=== PATIENT | female | born 2005 | race Caucasian/White ===

== ENCOUNTER → 2025-02-14 08:23 | Outpatient (REF) | payer BC, SELFPAY | LOC: HWRAD 08:23 | PROVIDERS: ATTENDING PHYSICIAN Obstetrics & Gynecology; FAMILY PHYSICIAN Physician Assistant Medical | DX: R10.2 Pelvic and perineal pain (principal) | CPT/HCPCS: 76830; 76856 ==

== ENCOUNTER 2025-05-13 17:13 | Emergency (ER) | payer BC, SELFPAY ==
[2025-05-13 17:15] VITALS: BP 135/88
[2025-05-13 17:27] LABS: Hematocrit 40.4 % (37.0-47.0); Hemoglobin 13.8 g/dL (12.0-16.0); Mean Corp Hgb Conc. 34.2 g/dL (33.0-37.0); Mean Corpuscular Volume 86.0 fL (81.0-99.0); Nucleated Red Blood Cells % 0 %; Platelet Count 287 10^3/uL (130-400); Red Cell Dist. Width 13.7 % (11.5-14.5)
[2025-05-13 18:01] LABS: ALT (SGPT) 22 U/L (0-35); AST (SGOT) 28 U/L (14-36); Albumin 5.0 g/dl (3.5-5.0); Alkaline Phosphatase 38 U/L (38-126); Blood Urea Nitrogen 15 mg/dl (7-17); Calcium 9.7 mg/dl (8.4-10.2); Carbon Dioxide 24 mmol/L (22-30); Chloride 106 mmol/L (98-107); Glucose 119 mg/dl (70-99); Potassium 4.5 mmol/L (3.5-5.1); Sodium 138 mmol/L (135-145); Total Protein 8.4 g/dl (6.3-8.2); eGFR > 60.00
[2025-05-13 18:02] LABS: HCG, Serum Qualitative Screen Negative
[2025-05-13 19:58] VITALS: BMI 21.0
--- NOTE | 2025-05-13 20:54 | ED.GENMED ---
History of Present Illness
General
Chief Complaint: Female Program Support Specialist/Gu symptoms
Source: patient
Exam Limitations: none
Time Seen by Provider: 05/13/25 19:36
Nursing documentation reviewed up to this point in time: agreed with
History of Present Illness
History of Present Illness:
19 yo female here with irregular bleeding outside of her menstrual period and abdominal pain. Her last normal menstrual period was on the 04-02 of this month, and she began experiencing unusual bleeding starting on the . The bleeding over the
past three days has been characterized by blood ranging from black to brown to red. She saw her TILE FITTER doctor 02/14 and had US
The patient reports having light bleeding and is currently using mini pads. She describes her periods as generally not heavy.
A gynecological evaluation was attempted earlier today at a clinic where she she states the pelvic pain was so bad when they examined her that she fainted, leading to a recommendation for an emergency room visit.
She states a history of bilateral ovarian cysts, specifically a larger one on the left side.
The patient confirms her bowel movements and urination are normal, with no changes in stool color.
Past History
Past History
ED Past Medical History: None
ED Past Surgical History: Other (breast reduction)
Social History
Tobacco: Smoker
Alcohol: Occasional
Personal: Single
Employment: Employed
Review of Systems
Review of Systems
Allergies reviewed?: Yes
All Other Systems: ROS reviewed and negative except as documented in HPI and ROS
Constitutional: Reports weight loss (She reports significant weight fluctuations, noting a previous weight of 150 pounds, which notably decreased about a year ago. She is currently struggling to gain weight. PCP recommended GI doctor but has not
been seen. States 1 year ago she was 150 pounds and now she is 104. She denies being ano); Denies fever or fatigue
Respiratory: Denies trouble breathing
Cardiac: Denies chest pain
ABD/GI: Reports abdominal pain
: Reports bleeding; Denies dysuria or frequency
Musculoskeletal: Reports no symptoms
Skin: Reports no symptoms
Neurological: Reports no symptoms
Phy Exam
Physical Exam
Physical Exam:
GENERAL: No acute distress. A&Ox3.
CONSTITUTIONAL: Afebrile.
EYES: clear, conjunctivae normal
ENMT: moist mucus membranes, Pharynx nl
RESPIRATORY: Regular respirations, nonlabored, lungs clear.
CARDIOVASCULAR: Regular rate and rhythm, no murmurs, no rubs.
GI: Soft, nontender, normal BS
: Very small amount of red blood on mini pad
MUSCULOSKELETAL: Moves with ease. Well perfused.
SKIN: Warm, dry, pink
PSYCH: Normal mood and affect. Well kept, interactive and appropriate
NEUROLOGIC: Awake, alert and oriented. No focal neurological deficits
Course
Orders/Labs/Results
Orders:
Orders
05/13/25 17:17
Test Result ONCE
05/13/25 17:21
Complete Blood Count/With Diff Urgent
Comprehensive Metabolic Panel Urgent
HCG, Serum Qualitative Screen Urgent
05/13/25 19:37
US Pelvis W Transvag Combined Urgent
Comment:
Reason For Exam: abnormal vag bleeding
Abnormal Lab Results
05/13/25
17:21
MPV 10.5 H fL
(7.4-10.4)
Monocytes % 9.7 H %
(1.7-9.3)
Glucose 119 H mg/dl
(70-99)
Total Protein 8.4 H g/dl
(6.3-8.2)
05/13/25 17:21
05/13/25 17:21
Vital Signs
Initial and Last Documented VS:
Initial Vital Signs
Temp Pulse Resp BP Pulse Ox
98.5 F 75 16 135/88 97
05/13/25 17:15 05/13/25 17:15 05/13/25 17:15 05/13/25 17:15 05/13/25 17:15
Last Documented Vital Signs
Temp Pulse Resp BP Pulse Ox
98.5 F 72 18 132/78 100
05/13/25 17:15 05/13/25 22:50 05/13/25 22:50 05/13/25 22:50 05/13/25 22:50
MDM/Problems Addressed
Differential Diagnosis Includes:
1. Ovarian cysts
2. Dysfunctional uterine bleeding
3. Endometriosis
4. Pelvic inflammatory disease
5. Ectopic
6. Uterine fibroids
7. Polycystic ovary syndrome (PCOS)
8. Hormonal imbalance
9. Gastrointestinal disorders
10. Weight-related concerns (malnutrition or eating disorders)
MDM/Problems Addressed:
19 yo female here with irregular bleeding outside of her menstrual period and abdominal pain. Her last normal menstrual period was on the 04-02 of this month, and she began experiencing unusual bleeding starting on the . The bleeding over the
past three days has been characterized by blood ranging from black to brown to red. She saw her TILE FITTER doctor 02/14 and had US
The patient reports having light bleeding and is currently using mini pads. She describes her periods as generally not heavy.
A gynecological evaluation was attempted earlier today at a clinic where she she states the pelvic pain was so bad when they examined her that she fainted, leading to a recommendation for an emergency room visit.
She states a history of bilateral ovarian cysts, specifically a larger one on the left side.
The patient confirms her bowel movements and urination are normal, with no changes in stool color.
CBC normal
CMP normal
hCG negative
Plan:
1. Order ultrasound to further evaluate the patients condition.
2. Referral to a gastrointestinal specialist to address significant weight fluctuations and related concerns.
3. Review of bloodwork results.
4. Follow-up care to be coordinated through primary care and specialized consultations as needed.
10:40 PM:
Ultrasound pelvis radiology report reviewed: 1. Unremarkable pelvic ultrasound as described.
Pt is followed by [facility]
*Pulse Oximetry
SaO2: 97
Oxygen Mode of Delivery: Room air
Patient hypoxic: not evaluated
*Critical Care Note
Total Time (30-74mins, 75-104mins- exclusive of procedures): Not Applicable
ED Attending Note
-
Portions of this chart may have been created with voice recognition software.� Occasional wrong word or��sound alike� substitutions may have occurred due to the inherent limitations of voice recognition software.
Discharge Plan
Departure
Patient Disposition: Home (Routine Discharge)
Date of Disposition: 05/13/25
Time of Disposition: 22:41
Patient with high blood pressure during this ER visit?: No
Condition: Good
Discharge Problem:
Abnormal vaginal bleeding
Prescriptions:
No Action
celecoxib 200 MG capsule
200 mg PO .ONCE
acetaminophen [Tylenol Extra Strength] 500 MG tablet
1,000 mg PO .ONCE
aprepitant [Emend] 40 MG capsule
40 mg PO .ONCE
Referrals:
Tristan Arredondo MD [Family Provider, Family Practice]
Activity Restrictions/Additional Instructions:
As we discussed, your workup here today shows nothing worrisome. Your ultrasound is normal. Your blood work is normal.
Follow-up with your TILE FITTER doctor if you have any further concerns
Interventions
Interventions:
*Risk Screen - Suicide Last Done: 05/13/25 17:17
*General Assessment Last Done: 05/13/25 22:53
*Neglect/Abuse Screening Last Done: 05/13/25 17:17
*ED- Fall Risk Assessment Last Done: 05/13/25 22:53
*ED COVID-19 Vaccine History Last Done: 05/13/25 22:53
*Nursing Disposition Last Done: 05/13/25 22:53
ED-Female Genitourinary Assessment Last Done: 05/13/25 19:58
Discharge Date and Time
Discharge Date/Time: 05/13/25 22:55
Print Language: KOREAN
[2025-05-13 22:50] VITALS: BP 132/78
== END 2025-05-13 22:55 | disposition home or self-care (01) ==
LOC: EMR 17:13
PROVIDERS: Emergency Medicine; EMERGENCY PHYSICIAN Emergency Medicine; FAMILY PHYSICIAN Family Medicine
DX: N93.9 Abnormal uterine and vaginal bleeding, unspecified (principal); R10.2 Pelvic and perineal pain; F17.200 Nicotine dependence, unspecified, uncomplicated
CPT/HCPCS: 99284; 76830; 76856; 80053; 84703; 85025

== ENCOUNTER → 2025-05-24 09:50 | Outpatient (REF) | payer BC, SELFPAY ==
[2025-05-24 12:33] LABS: Hematocrit 39.3 % (37.0-47.0); Hemoglobin 13.0 g/dL (12.0-16.0); Mean Corp Hgb Conc. 33.1 g/dL (33.0-37.0); Mean Corpuscular Volume 86.6 fL (81.0-99.0); Nucleated Red Blood Cells % 0 %; Platelet Count 273 10^3/uL (130-400); Red Cell Dist. Width 14.2 % (11.5-14.5)
[2025-05-24 12:46] LABS: ALT (SGPT) 21 U/L (0-35); AST (SGOT) 24 U/L (14-36); Albumin 4.8 g/dl (3.5-5.0); Alkaline Phosphatase 41 U/L (38-126); Blood Urea Nitrogen 14 mg/dl (7-17); Calcium 9.8 mg/dl (8.4-10.2); Carbon Dioxide 22 mmol/L (22-30); Chloride 108 mmol/L (98-107); Glucose 81 mg/dl (70-99); HDL Cholesterol 92 mg/dl; LDL Cholesterol, Calculated 77 mg/dl; Potassium 4.5 mmol/L (3.5-5.1); Sodium 141 mmol/L (135-145); Total Protein 8.1 g/dl (6.3-8.2); Very Low Density Lipoprotein 15 mg/dl (0-30); eGFR > 60.00
[2025-05-24 13:50] LABS: LDL Cholesterol, Direct 67 mg/dl
[2025-05-24 14:05] LABS: TSH 4.26 uIU/ml (0.47-4.68)
[2025-05-24 21:32] LABS: Hepatitis C Antibody Negative (Negative)
== END ==
LOC: REG 09:50
PROVIDERS: ATTENDING PHYSICIAN Physician Assistant Medical
DX: M41.9 Scoliosis, unspecified (principal); Z76.89 Persons encountering health services in other specified circumstances; N92.0 Excessive and frequent menstruation with regular cycle; Z13.220 Encounter for screening for lipoid disorders; N83.202 Unspecified ovarian cyst, left side; R10.30 Lower abdominal pain, unspecified; Z11.59 Encounter for screening for other viral diseases
CPT/HCPCS: 36415; 80053; 80061; 83721; 84443; 85025; 86803

== ENCOUNTER 2025-06-12 20:44 | Emergency (ER) | payer BC, SELFPAY ==
[2025-06-12 21:05] VITALS: BP 123/79
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
[2025-06-13 01:51] LABS: Hematocrit 41.5 % (37.0-47.0); Hemoglobin 13.8 g/dL (12.0-16.0); Mean Corp Hgb Conc. 33.3 g/dL (33.0-37.0); Mean Corpuscular Volume 86.1 fL (81.0-99.0); Nucleated Red Blood Cells % 0 %; Platelet Count 340 10^3/uL (130-400); Red Cell Dist. Width 14.0 % (11.5-14.5)
[2025-06-13 02:00] LABS: HCG, Serum Qualitative Screen Negative
[2025-06-13 02:04] LABS: Blood Urea Nitrogen 13 mg/dl (7-17); Calcium 10.1 mg/dl (8.4-10.2); Carbon Dioxide 23 mmol/L (22-30); Chloride 106 mmol/L (98-107); Glucose 86 mg/dl (70-99); Potassium 4.1 mmol/L (3.5-5.1); Sodium 141 mmol/L (135-145); eGFR > 60.00
--- NOTE | 2025-06-13 09:19 | EDRN ---
Assumed care of pt at this time.
--- NOTE | 2025-06-13 09:22 | EDRN ---
Per crisis pt has been arranged to go to [facility] for inpt psychiatric care though her insurance will not cover transport. Crisis is working on transport for pt at this time.
[2025-06-13 09:55] VITALS: BP 134/70
--- NOTE | 2025-06-13 10:21 | EDRN ---
Dr. Turner in room w/pt at this time.
--- NOTE | 2025-06-13 10:33 | EDRN ---
Pt is requesting to wash up and take a shower per Dr. Turner.
--- NOTE | 2025-06-13 10:43 | EDRN ---
Pt to room #39 to use the shower at this time w/ Siomara RUBIO PCT.
--- NOTE | 2025-06-13 11:00 | EDRN ---
Pt was very loud after arriving into room #39. Elif and Siomara RUBIO steelscope operator both in room w/ pt at this time. Pt now quiet.
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
--- NOTE | 2025-06-13 11:15 | EDRN ---
Pt returned to room at this time post shower and brushing her teeth and doing her hair.
--- NOTE | 2025-06-13 12:21 | EDRN ---
Crisis called and said pt is going to [facility] in pt psychiatric care when [facility] arrives, ambulance enroute at this time.
== END 2025-06-13 13:15 ==
LOC: EMR 20:44
PROVIDERS: EMERGENCY PHYSICIAN Emergency Medicine
DX: F32.A Depression, unspecified (principal); F41.9 Anxiety disorder, unspecified; F17.200 Nicotine dependence, unspecified, uncomplicated; Z91.52 Personal history of nonsuicidal self-harm
CPT/HCPCS: 99283; 80048; 80306; 82077; 84703; 85025